=== PATIENT | male | born 2000 ===

== ENCOUNTER 2023-05-23 21:59 | Inpatient (IN) | payer OTHER, SELFPAY ==
--- NOTE | 2023-05-23 | ECG_ITS ---
Test Reason : CHEST PAIN Blood Pressure : / mmHG Vent. Rate : 108 BPM Atrial Rate : 108 BPM P-R Int : 144 ms QRS Dur : 104 ms QT Int : 332 ms P-R-T Axes : 078 123 064 degrees QTc Int : 444 ms Sinus tachycardia Right atrial enlargement Right axis deviation Pulmonary disease pattern Incomplete right bundle branch block Abnormal ECG No previous ECGs available Referred By: Generic ED Physician Electronically Signed By:Milan Cross
--- NOTE | ~2023-05-23 | XR_ITS ---
EXAMINATION: XR CHEST CLINICAL INFORMATION: Chest pain. COMPARISON: None available. TECHNIQUE: 2 views of the chest were obtained. FINDINGS: No significant abnormality is noted involving the heart, lungs, mediastinum, bony thorax or soft tissues. XR/XR chest 2V IMPRESSION: Unremarkable examination.
[2023-05-23 22:22] VITALS: BP 155/94; PULSE 93; RESP 18; TEMP 37.1; O2SAT 97; BMI 19.0
[2023-05-23 22:48] LABS: MANUAL DIFF FLAG NO
[2023-05-23 22:57] LABS: VBG Base Excess -6.9 mmol/L; VBG HCO3 15 mmol/L (22-26); VBG pCO2 24 mmHg; VBG pO2 97 mmHg
[2023-05-23 22:58] LABS: Venous Blood Gas Refer to POC result
[2023-05-23 22:59] LABS: Basophils Absolute Auto 0.1 X10*3/uL (0.0-0.2); Basophils Percent Auto 0.5 % (0-2); Eosinophils Percent Auto 0.1 % (0-4); Hematocrit 40.9 % (42.0-52.0); Hemoglobin 14.5 g/dl (14.0-18.0); Imm Gran Abs Auto 0.04 X10*3/uL (0.00-0.03); Imm Gran Pct Auto 0.3 % (0.0-0.4); Lymphocytes Absolute Auto 3.1 X10*3/uL (1.2-4.9); Lymphocytes Percent Auto 23.5 % (20-40); Mean Corpuscular HGB Conc 35.5 g/dl (31.0-36.0); Mean Corpuscular Volume 87.6 fL (80.0-98.0); Monocytes Absolute Auto 0.9 X10*3/uL (0.1-1.2); Monocytes Percent Auto 6.9 % (2-11); Neutrophils Absolute Auto 9.1 x10*3/uL (2.0-8.3); Neutrophils Percent Auto 68.7 % (45-73); Platelet Count 378 X10*3/uL (160-400); Red Blood Count 4.67 X10*6/uL (4.60-5.80); Red Cell Distribution Width 11.3 % (11.0-16.0); White Blood Count 13.3 X10*3/uL (4.8-10.8)
[2023-05-23 23:21] LABS: Troponin-I High Sensitivity < 2.7 ng/L (<3.5-35.0)
[2023-05-23 23:27] LABS: Alanine Aminotransferase 46 U/L (0-40); Alkaline Phosphatase 95 U/L (39-117); Anion Gap 31 (12-20); Aspartate Amino Transferase 25 U/L (5-37); Bilirubin Total 1.2 mg/dL (0.0-1.0); Blood Urea Nitrogen 17 mg/dL (9-16); Calcium 10.8 mg/dL (8.4-10.2); Carbon Dioxide 15 mmol/L (22-29); Chloride 86 mmol/L (96-108); Estimated Glomerular Filt Rate > 60; Glucose Random 548 mg/dL (60-115); Potassium 3.8 mmol/L (3.3-5.1); Sodium 128 mmol/L (135-145); Total Protein 8.1 g/dL (6.5-8.0)
[2023-05-23 23:37] LABS: Beta-Hydroxybutyrate 7.36 mmol/L (0.02-0.27)
--- NOTE | 2023-05-23 23:40 | PC.NURSE ---
Pt states his blood sugar is dropping rapidly. Endorses that he apparently bolused himself almost 20 units of humalog at home prior to coming to ED. Repeat POC 357. Provider Nikki and primary RN made aware.
[2023-05-23 23:45] LABS: Glucose, Whole Blood 356 mg/dL (60-115)
[2023-05-23 23:45] LABS: Glucose, Whole Blood 578 mg/dL (60-115)
--- OUTSIDE RECORDS SUMMARY | 2023-05-23 23:48 | XMS_ITS | Continuity of Care Document ---
Author Name Unknown Organization [facility] [place] Address [address] [place] [address]- Care Team Providers Care Probation Counselor Name Role Phone Solo SOARES, Priyanka Martino Primary Care Physician [phone] Encounter [facility] Date(s): 10/23/21 - 11/22/21 [facility] [place] [address] [place] [address]- Allergies, Adverse Reactions, Alerts Substance Reaction Severity Status penicillin hives Active Trileptal rash Active Demerol HCl Severe vomitting Active Klonopin hives Active Zithromax hives Active Neurontin hives Active Immunizations Not Given Vaccine Date Status Refusal Reason influenza virus vaccine, inactivated 07/20/17 Not Given Patient Refuses Medications Aspir 81 = 81 mg, By Mouth, Daily, 0 Refills, Maintenance, 10/29/15 16:30:50 Start Date: 10/29/15 Status: Ordered Len Microlet Lancets Len Microlet Lancets, See Instructions, # 200 each, Refills 5, Tot. Refills 5, Maintenance, Test blood sugar max 7x's/day, 06/05/15 15:53:10, Compound Start Date: 06/05/15 Status: Ordered Contour Next EZ Glucometer See Instructions, # 1 each, Refills 1, Tot. Refills 1, Maintenance, For IDDM, use to check blood glucose 5 x's /day Linking meter to Medtronic Insulin Pump, 11/09/18 11:07:19 ТАТЬЯНА BYRNE in progress, Compound Start Date: 11/09/18 Status: Ordered Contour Next EZ Test Strips See Instructions, # 150 each, Refills 11, Tot. Refills 11, Maintenance, For IDDM, use with Contour Next Glucose Meter, check blood sugars 5 x's/day, 11/09/18 11:07:26 EST, PA in progress, Compound Start Date: 11/09/18 Status: Ordered Contour Next EZ Test Strips See Instructions, # 600 units, Refills 4, Tot. Refills 4, Maintenance, use as directed for Type 1 Diabetes Mellitus; tests up to 7 times/d, 06/10/17 15:44:50, Compound Start Date: 06/10/17 Stop Date: 09/03/18 Status: Ordered Glucagon Emergency Kit See Instructions, PRN, # 2 each, Refills 3, Tot. Refills 3, Maintenance, Blood Glucose, For severe hypoglycemia in type 1 diabetes, 06/10/17 15:44:26, Compound Start Date: 06/10/17 Stop Date: 10/08/17 Status: Ordered Humalog 100 u/ml subcutaneous injection See Instructions, for IDDM- use with insulin pump,max dose 110 units/day 10 mL vials, # 30 mL, 0 Refills, Maintenance, 10/18/19 15:45:00 EST, [facility]/pharmacy #[id number], 175.4, cm, 11/02/18 13:49:00 EST, Height, 58.1, kg, 11/02/18 13:49:00 EST, Dry Weight Start Date: 10/18/19 Status: Ordered Humalog 100 u/ml subcutaneous injection See Instructions, Subcutaneous Injection, 12-3am 0.9u/hr. 3-8am 1.4u/hr. 8am-2pm 1.3u/hr. 2pm-10pm 1.7u/hr. 10pm-12pm 1.1 u/hr, # 8 each, 3 Refills, Maintenance, 06/10/17 15:45:05 Start Date: 06/10/17 Stop Date: 10/08/17 Status: Ordered ibuprofen 600 mg oral tablet 600 mg, 1, tablet, By Mouth, 3 times a day, PRN, with food, # 20 tablet, Refills 0, Tot. Refills 0,Maintenance, as needed for pain, 12/20/19 19:20:00 EDT, Route to Pharmacy Electronically, [facility]/pharmacy #[id number], 183, cm, 12/20/19 18:44:00 EDT, Height, 5... Start Date: 12/20/19 Status: Ordered Insulin Syringe, BD Ultra-Fine 0.5 cc 31 G x 8 mm (5/16in) See Instructions, # 200 each, Refills 6, Tot. Refills 6, Maintenance, Use for T1DM. Use 6-7x/daily.Use for home and school., 11/02/18 14:26:19 EST, Compound Start Date: 11/02/18 Status: Ordered Ketostix See Instructions, # 2 vials, Refills 11, Tot. Refills 11, Maintenance, use as directed for Type 1 Diabetes Mellitus.use daily if BS greater than 300 and during illness, 11/02/18 14:28:45 EST, Compound Start Date: 11/02/18 Stop Date: 10/28/19 Status: Ordered Lantus 100 u/ml subcutaneous solution = 20 units, Subcutaneous Injection, Daily at bedtime, IDDM max 50 units daily, # 10 mL, 5 Refills, Maintenance, 11/02/18 14:29:44 EST, Solution Start Date: 11/02/18 Status: Ordered microlet lancets for Contour Next microlet lancets for Contour Next, See Instructions, # 150 each, Refills 11, Tot. Refills 11, Maintenance, For IDDM use with Contour Next Glucose Meter, check blood sugars 5 x's/day, 11/09/18 11:08:41 EST, PA in progress, Compound Start Date: 11/09/18 Status: Ordered MiniMed Paradigm Reservoirs See Instructions, # 40 application, Refills 1, Tot. Refills 1, Maintenance, IDDM 1.8 ml resevoirs. change every 2- 3 days. 90 day suppply, 10/19/18 13:09:22 EST, Compound Start Date: 10/19/18 Status: Ordered Julius infusion sets Julius infusion sets, See Instructions, # 45 each, Refills 0, Tot. Refills 0, Maintenance, IDDM. use with Medtronic pump and change every 2-3 days, 11/02/18 14:55:23 EST, Compound Start Date: 11/02/18 Status: Ordered OneTouch Verio Glucose Meter See Instructions, # 1 each, Refills 1, Tot. Refills 1, Maintenance, IDDM use to check blood sugars,11/04/18 11:30:07 EST, Compound Start Date: 11/04/18 Status: Ordered OneTouch Verio Lancets See Instructions, # 150 each, Refills 11, Tot. Refills 11, Maintenance, IDDM use to check blood sugars 5 times perday, 11/04/18 11:26:29 EST, Compound Start Date: 11/04/18 Status: Ordered OneTouch Verio Lancets See Instructions, # 150 each, Refills 5, Tot. Refills 5, Maintenance, use 5 times daily, 11/04/18 11:26:32 EST, Compound Start Date: 11/04/18 Status: Ordered OneTouch Verio Test Strips See Instructions, # 150 each, Refills 11, Tot. Refills 11, Maintenance, IDDM use to check blood sugars 4-5 times daily, 11/03/18 15:37:28 EST, Compound Start Date: 11/03/18 Status: Ordered Problem List Condition Effective Dates Status Health Status Inform ant ADHD(Confirmed) Active Diabetes mellitus type 1(Confirmed) Active Headache(Confirmed) Active [place] disease(Confirmed) Active Seizure disorder(Confirmed) Active Social History Social History Type Response Smoking Status Never (less than 100 in lifetime) entered on: 12/20/19 Sex
--- OUTSIDE RECORDS SUMMARY | 2023-05-23 23:48 | XMS_ITS | Continuity of Care Document ---
Author Name Unknown Organization [facility] [place] Address [address] [place] [address]- Care Team Providers Care Track Moving Machine Operator Name Role Phone Solo SOARES, Priyanka Martino Primary Care Physician Encounter [facility] Date(s): 11/07/21 - 12/07/21 [facility] [place] [address] [place] [address]- Allergies, Adverse Reactions, Alerts Substance Reaction Severity Status penicillin hives Active Klonopin hives Active Zithromax hives Active Neurontin hives Active Demerol HCl Severe vomitting Active Trileptal rash Active Immunizations Not Given Vaccine Date Status [...] mL, 0 Refills, Maintenance, 10/18/19 15:45:00 EST, [facility]/pharmacy #1234, 175.4, cm, 11/02/18 13:49:00 EST, [...] 12/20/19 19:20:00 EDT, Route to Pharmacy Electronically, [facility]/pharmacy #[id number], 183, cm, 12/20/19 18:44:00 EDT, [...]
--- OUTSIDE RECORDS SUMMARY | 2023-05-23 23:49 | XMS_ITS | Continuity of Care Document ---
Author Name Unknown Organization [facility] Address [address] [place] [id number]- Care Team Providers Care Corporate Development Associate Name Role Phone Solo SOARES, Priyanka Martino Primary Care Physician Encounter [facility] Date(s): 10/29/21 - 12/12/[address] [address]- Attending Physician: Robyn Martin MD Admitting Physician: Robyn Martin MD Referring Physician: Robyn Martin MD Allergies, Adverse Reactions, Alerts Substance Reaction Severity [...] check blood sugars 5 x's/day, 11/09/18 11:07:26 ESTТАТЬЯНА in progress, Compound Start Date: 11/09/18 Status: [...] mL, 0 Refills, Maintenance, 10/18/19 15:45:00 EST, [facility]/pharmacy #1234, 175.4, cm, 11/02/18 13:49:00 EST, Height, [...] 12/20/19 19:20:00 EDT, Route to Pharmacy Electronically, [facility]/pharmacy #[id number], 183, cm, 12/20/19 18:44:00 EDT, Height, [...] EST, Compound Start Date: 11/02/18 Status: Ordered OneInnovitiuch Verio Glucose Meter See Instructions, # 1 [...]
--- OUTSIDE RECORDS SUMMARY | 2023-05-23 23:49 | XMS_ITS | Summary of Care ---
/Man Author Name Unknown Organization [facility] Address [address] [place] [address]- Care Team Providers Care Erp Engineer Name Role Phone Physician, Nopcp Primary Care Physician Unavaila ble Encounter [facility] [id number] Date(s): 10/15/21 - 10/15/21 [place] [id number]- [facility] Encounter Diagnosis Abdominal pain(Discharge Diagnosis) - 10/15/21 Discharge Disposition: Home Attending Physician: Estelita SOARES, Bright Mckeon Allergies, Adverse Reactions, Alerts No Known Allergies Social History Social History Type Response
--- OUTSIDE RECORDS SUMMARY | 2023-05-23 23:49 | XMS_ITS | Continuity of Care Document ---
Author Name Unknown Organization [facility] [place] Address [address] [place] [address]- Care Team Providers Care Incinerator Plant General Supervisor Name Role Phone Solo SOARES, Priyanka Martino Primary Care Physician [phone] Encounter [facility] Date(s): 10/29/21 - 11/28/21 [facility] [place] [address] [place] [address]- Allergies, Adverse Reactions, Alerts Substance Reaction Severity [...] mL, 0 Refills, Maintenance, 10/18/19 15:45:00 EST, [facility]/pharmacy #1234, 175.4, cm, 11/02/18 13:49:00 EST, Height, [...] 12/20/19 19:20:00 EDT, Route to Pharmacy Electronically, [facility]/pharmacy #[id number], 183, cm, 12/20/19 18:44:00 EDT, Height, [...]
--- OUTSIDE RECORDS SUMMARY | 2023-05-23 23:49 | XMS_ITS | Summary of Care ---
/Man Author Name Unknown Organization [facility] Address [address] [place] [address]- Care Team Providers Care Secret Code Expert Name Role Phone Valeria SOARES, Eleazar Pride Primary Care Physician [phone] Encounter [facility] [id number] Date(s): 02/06/23 - 02/06/23 [place] [address]- [facility] Discharge Disposition: Home Attending Physician: Sara Morocho NP Allergies, Adverse Reactions, Alerts No Known Allergies Social History Social History Type Response
--- OUTSIDE RECORDS SUMMARY | 2023-05-23 23:49 | XMS_ITS | Summary of Care ---
/Man Author Name Unknown Organization [facility] Address [address] [place] [address]- Care Team Providers Care National Park Ranger Name Role Phone Valeria SOARES, Eleazar Pride Primary Care Physician [phone] Encounter [facility] [id number] Date(s): 01/07/23 - 01/07/23 [place] [address]- [facility] Discharge Disposition: Home Attending Physician: Rashawn JONES, Sara Albrecht Referring Physician: Eleazar Shaw MD Allergies, Adverse Reactions, Alerts No Known Allergies Social History Social History Type Response
--- OUTSIDE RECORDS SUMMARY | 2023-05-23 23:49 | XMS_ITS | Continuity of Care Document ---
Author Name Unknown Organization [facility] [place] Address [address] [place] [address]- Care Team Providers Care Regional Economist Name Role Phone Solo SOARES, Priyanka Martino Primary Care Physician Encounter [facility] Date(s): 10/25/21 - 11/24/21 [facility] [place] [address] [place] [address]- Attending Physician: Elijah Vaughn Admitting Physician: AdmElijah jara Referring Physician: Admtr ArCandis Allergies, Adverse Reactions, Alerts Substance Reaction Severity [...] mL, 0 Refills, Maintenance, 10/18/19 15:45:00 EST, [facility]/pharmacy #1234, 175.4, cm, 11/02/18 13:49:00 EST, [...] 12/20/19 19:20:00 EDT, Route to Pharmacy Electronically, [facility]/pharmacy #1234, 183, cm, 12/20/19 18:44:00 EDT, [...] EST, Compound Start Date: 11/02/18 Status: Ordered OneFUNGO STUDIOSuch Verio Glucose Meter See Instructions, # 1 [...]
--- OUTSIDE RECORDS SUMMARY | 2023-05-23 23:49 | XMS_ITS | Summary of Care ---
/Man Author Name Unknown Organization [facility] Address [address] [place] [address]- Care Team Providers Care Millstone Cleaner Name Role Phone Valeria SOARES, Eleazar Pride Primary Care Physician Encounter [facility] [id number] Date(s): 02/06/23 - 02/06/23 [place] [address]- [facility] Discharge Disposition: Home Attending Physician: Sara Morocho NP Allergies, Adverse Reactions, Alerts No Known Allergies Social History Social History Type Response
--- OUTSIDE RECORDS SUMMARY | 2023-05-23 23:49 | XMS_ITS | Summary of Care ---
/Man Author Name Unknown Organization [facility] Address [address] [place] [address]- Care Team Providers Care Gas Controller Name Role Phone Physician, Nopcp Primary Care Physician Unavaila ble Encounter [facility] [id number] Date(s): 04/15/22 - 04/15/22 [place] [id number] Discharge Disposition: Home Attending Physician: Valeria SOARES, Eleazar Pride Allergies, Adverse Reactions, Alerts No Known Allergies Social History Social History Type Response
--- OUTSIDE RECORDS SUMMARY | 2023-05-23 23:49 | XMS_ITS | Summary of Care ---
/Man Author Name Unknown Organization [facility] Address [address] [place] [address]- Care Team Providers Care Missile Inspector Name Role Phone Valeria SOARES, Eleazar Pride Primary Care Physician Encounter [facility] [id number] Date(s): 08/19/22 - 08/19/22 [place] [address]- [facility] Discharge Disposition: Home Attending Physician: Eleazar Shaw MD Allergies, Adverse Reactions, Alerts No Known Allergies Social History Social History Type Response
--- OUTSIDE RECORDS SUMMARY | 2023-05-23 23:49 | XMS_ITS | Continuity of Care Document ---
Author Name Unknown Organization [facility] [place] Address [address] [place] [address]- Care Team Providers Care Report Checker Name Role Phone Solo SOARES, Priyanka Martino Primary Care Physician [phone] Encounter [facility] Date(s): 11/06/21 - 12/06/21 [facility] [place] [address] [place] [address]- Allergies, Adverse Reactions, Alerts Substance Reaction Severity [...] mL, 0 Refills, Maintenance, 10/18/19 15:45:00 EST, [facility]/pharmacy #1234, 175.4, cm, 11/02/18 13:49:00 EST, Height, [...] 12/20/19 19:20:00 EDT, Route to Pharmacy Electronically, [facility]/pharmacy #1234, 183, cm, 12/20/19 18:44:00 EDT, Height, [...]
[2023-05-24] VITALS (11 sets, daily range): BP systolic 121–139; BP diastolic 58–84; PULSE 72–110; RESP 11–20; TEMP 36.6–36.7; O2SAT 96–100; BMI 18.2
[2023-05-24] MEDS: 0.9 % Sodium Chloride 1,000 ML 999 ML IV (00:10)
--- NOTE | 2023-05-24 00:10 | ED_ITS ---
HPI - General Adult General Chief complaint: General Medical Stated complaint: chest pain Time Seen by Provider: 05/23/23 23:44 Source: patient and family (Mother) Mode of arrival: ambulatory Limitations: no limitations History of Present Illness HPI narrative: 23-year-old male history of type 1 DM controlled insulin using insulin pump, patient just realized that the pump was not working for the past 2 days and his blood sugar was above 500, patient now is in DKA with anion gap of 31 and bicarb of 15 blood sugar above 500. Patient declined any coughing, no UTI symptoms, no skin infection. Patient prior to arrival to the hospital bolused himself was 20 units of insulin Humalog which is making his blood sugar dropping. Patient has been vomiting with no abdominal pain and could not keep p.o. intake for the last 2 days. Related Data Allergies Allergy/AdvReac Type Severity Reaction Status Date / Time azithromycin [Zithromax] Allergy Unknown Rash Verified 05/23/23 22:21 clonazepam [Klonopin] Allergy Unknown Rash Verified 05/23/23 22:21 gabapentin [Neurontin] Allergy Unknown Shakiness Verified 05/23/23 22:21 penicillin V Allergy Unknown Rash Verified 05/23/23 22:21 oxcarbazepine [Trileptal] AdvReac Unknown Agitated Verified 05/23/23 22:21 Review of Systems Review of Systems: All other systems are reviewed and are negative Constitutional: Reports as per HPI and Reports no additional constitutional complaints Eyes: Reports as per HPI and Reports no additional eye complaints Reports system reviewed and no additional complaints, except as documented Cardiovascular: Reports as per HPI and Reports no additional cardiovascular complaints Respiratory: Reports as per HPI and Reports no additional respiratory complaints Gastrointestinal: Reports as per HPI and Reports no additional gastrointestinal complaints Genitourinary: Reports no additional female genitourinary complaints Musculoskeletal: Reports no additional musculoskeletal complaints Skin/Breast: Reports system reviewed and no additional complaints, except as docu Psychiatric: Reports no additional psychiatric complaints Endocrine: Reports no additional endocrine complaints Hematologic/Lymphatic: Reports no additional hematologic/lymphatic complaints Allergic/Immunologic: Reports no additional allergic/immunologic complaints Reports system reviewed and no additional complaints, except as documented and Reports Abnormal speech present PMFSH Social History Social History Advance Directives: No Advance Directives Information Provided: No Physical Exam ED Vital Signs: Vital Signs - 24 hr 05/23/23 22:22 Temperature 98.8 F Pulse Rate 93 Respiratory Rate 18 Blood Pressure 155/94 H Pulse Oximetry 97 Oxygen Delivery Method Room Air BMI result Body Mass Index 19.0 Vital signs have been reviewed as appeared to be correct. Blood pressure normal. Heart rate normal. Respiration rate normal. Temperature normal. Oxygen saturation normal. Appearance: Alert. Oriented X3. No acute distress. Head: Normal external exam. Normocephalic. Atraumatic. No Newton signs noted. No raccoon eyes noted Eyes: PERRLA. EOMI. Conjunctiva and sclera normal. Eyelids normal. ENT: TM's Normal. Pharynx normal. Uvula midline. Moist mucous membranes. No trismus noted. No drooling noted. No muffled voice noted. Neck: Normal inspection. Neck supple. FROM. No adenopathy. Thyroid Normal. No meningeal signs. No neck mass noted. CVS: Normal heart rate and rhythm. Heart sound normal. No murmurs noted. Pulses normal throughout. Respiratory: No respiratory distress. Painless inspiration. Breath sounds normal. No wheezes/rales/rhonchi noted. Chest nontender. No accessory muscle usage noted or decreased air movement noted. Abdomen: Soft and nontender. Bowel sounds normal in all 4 quadrants. No distention noted. No organomegaly noted. No visible injury noted. Back: No CVA tenderness. Full range of motion noted. Skin: Skin warm and dry. Normal skin color. Normal skin turgor. No rashes/lesions/lacerations noted. Extremities: No lower extremity edema. Extremities exhibit normal range of motion. Extremities nontender. Neuro: Oriented X 3. Cranial nerve exam: II-XII are grossly intact No motor deficit. No sensory deficit. Reflexes normal. Course Course Course Narrative: 22-year-old male DM type 1, in DKA due to malfunctioning insulin pump. No sign of infection to precipitate DKA. Continue with IV fluid, insulin IV, ICU admission, stop the insulin pump past Medical Decision Making Differential Diagnosis Differential Diagnoses: The differential diagnosis associated with the presentation includes (Hyperglycemia, DKA, electrolyte abnormality, underlying infection, dehydration,) Admission/Observation Consideration of admission/observation: Escalation of care including admission/observation considered Consult Healthcare Provider Management of the patient was discussed with: [employer] (Dr. Gimenez.) Lab Data MDM Lab Attestation statement: I reviewed the patient's lab results. 05/23/23 22:37 05/23/23 22:37 Labs: Lab Results 05/23/23 05/23/23 05/23/23 Range/Units 22:30 22:36 22:37 WBC 13.3 H (4.8-10.8) X10*3/uL RBC 4.67 (4.60-5.80) X10*6/uL Hgb 14.5 (14.0-18.0) g/dl Hct 40.9 L (42.0-52.0) % MCV 87.6 (80.0-98.0) fL MCH 31.0 (27.0-33.0) pg MCHC 35.5 (31.0-36.0) g/dl RDW 11.3 (11.0-16.0) % Plt Count 378 (160-400) X10*3/uL MPV 10.0 (9.4-12.4) fL Immature Gran % (Auto) 0.3 (0.0-0.4) % Neut % (Auto) 68.7 (45-73) % Lymph % (Auto) 23.5 (20-40) % Wilkinson % (Auto) 6.9 (2-11) % Eos % (Auto) 0.1 (0-4) % Baso % (Auto) 0.5 (0-2) % Lymph # (Auto) 3.1 (1.2-4.9) X10*3/uL Wilkinson # (Auto) 0.9 (0.1-1.2) X10*3/uL Eos # (Auto) 0.0 (0.0-0.4) X10*3/uL Baso # (Auto) 0.1 (0.0-0.2) X10*3/uL Abs Immat Gran (auto) 0.04 H (0.00-0.03) X10*3/uL Absolute Neuts (auto) 9.1 H (2.0-8.3) x10*3/uL Absolute Nucleated RBC 0.000 (0.0-0.012) X10*3/uL Nucleated RBC % (auto) 0.0 (0.0-0.2) /100WBC VBG pH (7.32-7.43) VBG pCO2 mmHg VBG pO2 mmHg VBG HCO3 (22-26) mmol/L VBG O2 Saturation % VBG Base Excess mmol/L Sodium (135-145) mmol/L Potassium (3.3-5.1) mmol/L Chloride (96-108) mmol/L Carbon Dioxide (22-29) mmol/L Anion Gap (12-20) BUN (9-16) mg/dL Creatinine (0.5-1.4) mg/dL Estim Creat Clear Calc Estimated GFR POC Glucose 578 H* (60-115) mg/dL Random Glucose (60-115) mg/dL Calcium (8.4-10.2) mg/dL Total Bilirubin (0.0-1.0) mg/dL AST (5-37) U/L ALT (0-40) U/L Alkaline Phosphatase (39-117) U/L Troponin I High Sens (<3.5-35.0) ng/L Total Protein (6.5-8.0) g/dL Albumin (3.5-5.0) g/dL Beta-Hydroxybutyrate 7.36 H (0.02-0.27) mmol/L 05/23/23 05/23/23 05/23/23 Range/Units 22:37 22:37 22:45 WBC (4.8-10.8) X10*3/uL RBC (4.60-5.80) X10*6/uL Hgb (14.0-18.0) g/dl Hct (42.0-52.0) % MCV (80.0-98.0) fL MCH (27.0-33.0) pg MCHC (31.0-36.0) g/dl RDW (11.0-16.0) % Plt Count (160-400) X10*3/uL MPV (9.4-12.4) fL Immature Gran % (Auto) (0.0-0.4) % Neut % (Auto) (45-73) % Lymph % (Auto) (20-40) % Wilkinson % (Auto) (2-11) % Eos % (Auto) (0-4) % Baso % (Auto) (0-2) % Lymph # (Auto) (1.2-4.9) X10*3/uL Wilkinson # (Auto) (0.1-1.2) X10*3/uL Eos # (Auto) (0.0-0.4) X10*3/uL Baso # (Auto) (0.0-0.2) X10*3/uL Abs Immat Gran (auto) (0.00-0.03) X10*3/uL Absolute Neuts (auto) (2.0-8.3) x10*3/uL Absolute Nucleated RBC (0.0-0.012) X10*3/uL Nucleated RBC % (auto) (0.0-0.2) /100WBC VBG pH 7.40 (7.32-7.43) VBG pCO2 24 mmHg VBG pO2 97 mmHg VBG HCO3 15 L (22-26) mmol/L VBG O2 Saturation 99.0 % VBG Base Excess -6.9 mmol/L Sodium 128 L (135-145) mmol/L Potassium 3.8 (3.3-5.1) mmol/L Chloride 86 L (96-108) mmol/L Carbon Dioxide 15 L (22-29) mmol/L Anion Gap 31 H (12-20) BUN 17 H (9-16) mg/dL Creatinine 1.30 (0.5-1.4) mg/dL Estim Creat Clear Calc 80.0 Estimated GFR > 60 POC Glucose (60-115) mg/dL Random Glucose 548 H* (60-115) mg/dL Calcium 10.8 H (8.4-10.2) mg/dL Total Bilirubin 1.2 H (0.0-1.0) mg/dL AST 25 (5-37) U/L ALT 46 H (0-40) U/L Alkaline Phosphatase 95 (39-117) U/L Troponin I High Sens < 2.7 (<3.5-35.0) ng/L Total Protein 8.1 H (6.5-8.0) g/dL Albumin 5.0 (3.5-5.0) g/dL Beta-Hydroxybutyrate (0.02-0.27) mmol/L 05/23/23 Range/Units 23:37 WBC (4.8-10.8) X10*3/uL RBC (4.60-5.80) X10*6/uL Hgb (14.0-18.0) g/dl Hct (42.0-52.0) % MCV (80.0-98.0) fL MCH (27.0-33.0) pg MCHC (31.0-36.0) g/dl RDW (11.0-16.0) % Plt Count (160-400) X10*3/uL MPV (9.4-12.4) fL Immature Gran % (Auto) (0.0-0.4) % Neut % (Auto) (45-73) % Lymph % (Auto) (20-40) % Wilkinson % (Auto) (2-11) % Eos % (Auto) (0-4) % Baso % (Auto) (0-2) % Lymph # (Auto) (1.2-4.9) X10*3/uL Wilkinson # (Auto) (0.1-1.2) X10*3/uL Eos # (Auto) (0.0-0.4) X10*3/uL Baso # (Auto) (0.0-0.2) X10*3/uL Abs Immat Gran (auto) (0.00-0.03) X10*3/uL Absolute Neuts (auto) (2.0-8.3) x10*3/uL Absolute Nucleated RBC (0.0-0.012) X10*3/uL Nucleated RBC % (auto) (0.0-0.2) /100WBC VBG pH (7.32-7.43) VBG pCO2 mmHg VBG pO2 mmHg VBG HCO3 (22-26) mmol/L VBG O2 Saturation % VBG Base Excess mmol/L Sodium (135-145) mmol/L Potassium (3.3-5.1) mmol/L Chloride (96-108) mmol/L Carbon Dioxide (22-29) mmol/L Anion Gap (12-20) BUN (9-16) mg/dL Creatinine (0.5-1.4) mg/dL Estim Creat Clear Calc Estimated GFR POC Glucose 356 H* (60-115) mg/dL Random Glucose (60-115) mg/dL Calcium (8.4-10.2) mg/dL Total Bilirubin (0.0-1.0) mg/dL AST (5-37) U/L ALT (0-40) U/L Alkaline Phosphatase (39-117) U/L Troponin I High Sens (<3.5-35.0) ng/L Total Protein (6.5-8.0) g/dL Albumin (3.5-5.0) g/dL Beta-Hydroxybutyrate (0.02-0.27) mmol/L Independent Interpretation I performed an independent interpretation of an: Plain X-Ray (Chest: No acute intrathoracic pathology.) Radiology Impression Discussion of test interpretation with radiology: I have reviewed the radiologist's reading. Chronic Conditions Patient?s care impacted by: Diabetes Critical Care Time Critical Care Time Critical Care Time: Yes Total Critical Care Time: 60 Attestation: I spent 60 minutes providing critical care service to the patient, this including time spent at the bedside to evaluate the patient, reassess the patient, monitoring vital signs, review labs, and radiographic studies, counseling the patient/family, discussing the case with consultants, disposition the patient. Discharge Plan Discharge Clinical Impression: DKA (diabetic ketoacidosis) Patient Disposition: Admitted As Inpatient
[2023-05-24] MEDS: Dextrose 50 % 25 GM/50 ML SYRINGE IVPUSH ×2 (00:43→04:20)
[2023-05-24] MEDS: Insulin Regular/NS 100 UNIT/100 ML PLAST..BAG 6 UNIT IVCONT (00:44)
[2023-05-24 00:51] LABS: Glucose, Whole Blood 271 mg/dL (60-115)
[2023-05-24 01:40] LABS: Glucose, Whole Blood 214 mg/dL (60-115)
[2023-05-24 01:47] LABS: Glucose, Whole Blood 221 mg/dL (60-115)
--- NOTE | 2023-05-24 01:55 | PC.NURSE ---
Report to Brian FRANK in ICU.
[2023-05-24 02:16] LABS: Appearance Urine Clear; Color Urine Yellow; Glucose Urine UA >=1000 mg/dL (Negative); Leukocyte Esterase Urine Negative (Negative); Nitrite Urine Negative (Negative); PH 5.5 (5.0-9.0); Specific Gravity - Urine 1.025 (1.005-1.025); UMIC TRIGGER UACC YES; Urine Blood Negative (Negative); Urine Ketones >=160 mg/dL (Negative); Urine Protein Negative (Neg-Trace)
[2023-05-24] MEDS: KCl 20 mEq in 5% Dex/0.9% Sod 20 MEQ/1,000 ML IV.SOLN 100 MEQ IVCONT (02:18)
--- NOTE | 2023-05-24 02:20 | PM.CCHP ---
History of Present Illness Date of Service: 05/24/23 Attending physician on admission: Momo Gimenez Chief Complaint: DKA Mr. Matthews is a 23-year-old male with history of type 1 DM controlled with insulin pump? the presents to the ER with complaint of vomiting with no abdominal pain and could not keep p.o. intake for the last 2 days. He realized that his pump was not working for the past 2 days and his blood sugar was above 500. Patient denies any coughing, no UTI symptoms, no skin infection. In the ER his blood glucose was 548, sodium 128, potassium 3.8, chloride 86, CO2 15, anion gap 31,? BUN 17, creatinine 1.30.? Venous blood gas showed pH of 7.40, pCO2 24, HC03 of 15.?? He received 1 L normal saline and was started on an insulin drip.?? Review of Systems Review of Systems: Yes all other systems are reviewed and are negative PMFSH Past Medical History Functional capacity: independent ambulation Social History Social History Advance Directives: No Advance Directives Information Provided: No Meds Allergies Allergy/AdvReac Type Severity Reaction Status Date / Time azithromycin [Zithromax] Allergy Unknown Rash Verified 05/23/23 22:21 clonazepam [Klonopin] Allergy Unknown Rash Verified 05/23/23 22:21 gabapentin [Neurontin] Allergy Unknown Shakiness Verified 05/23/23 22:21 penicillin V Allergy Unknown Rash Verified 05/23/23 22:21 oxcarbazepine [Trileptal] AdvReac Unknown Agitated Verified 05/23/23 22:21 Active Medications: Current Medications Dextrose (Dextrose 50 % 25 Gm/50 Ml Syringe) 25 gm IVPUSH Q30M PRN PRN Reason: BG < 70 Dextrose (Dextrose 50 % 25 Gm/50 Ml Syringe) 25 gm IVPUSH Q30M PRN PRN Reason: BG < 70 Last Admin: 05/24/23 00:43 Dose: 25 gm Insulin Human Regular (Myxredlin) 100 unit in 100 mls @ 6 mls/hr IVCONT .[id number] [facility]; Protocol Last Titration: 05/24/23 01:50 Dose: 9 unit/hr, 9 mls/hr Potassium Chloride/Dextrose/Sod Cl (Kcl 20 Meq In 5% Dex/0.9% Sod) 20 meq in 1,000 mls @ 100 mls/hr IVCONT .Q10H GLENDY Last Admin: 05/24/23 02:18 Dose: 100 mls/hr Physical Exam Vital Signs: Vital Signs: Last Vital Signs Temp 98.8 F 05/23/23 22:22 Pulse 92 05/24/23 01:59 Resp 20 05/24/23 01:59 BP 127/58 L 05/24/23 01:59 Pulse Ox 98 05/24/23 01:59 O2 Del Method Room Air 05/24/23 01:59 BMI result Body Mass Index 19.0 Const: General: cooperative, no acute distress and alert Nutritional Appearance: thin and underweight Orientation/consciousness: patient oriented x3 (answering appropriately.) Limitations: no limitations HEENT: Head: Yes normocephalic and Yes atraumatic General nose exam: Normal external nose present (Nares patent, septum midline, sinuses nontender bilaterally.) Mouth: Normal oral and palatal mucosa present (No thrush, tongue in midline, mucosa moist.) Throat: Yes other (No erythema, no exudate.) Neck: Neck: Yes supple (no thyromegaly, trachea midline.) Resp: Auscultation: clear to auscultation bilaterally (normal work of breathing, no accessory muscle use) Cardio: Jugular venous distension: no JVD Rate: regular rate Rhythm: regular rhythm Heart sounds: no gallops, no murmurs and no rubs Peripheral pulses: Peripheral pulses 2+ throughout GI: Palpation (GI): Soft to palpation (nondistended.) and nontender Neuro: General: patient oriented x3 (answering appropriately.) Extrem: General: Yes full ROM, Yes capillary refill normal and Yes no clubbing, cyanosis or edema Psych: Affect: normal affect Attitude: cooperative Results Labs 05/23/23 22:37 05/23/23 22:37 Labs: Laboratory Results - last 24 hr 05/23/23 05/23/23 05/23/23 22:30 22:36 22:37 MCV 87.6 MCH 31.0 MCHC 35.5 RDW 11.3 Plt Count 378 MPV 10.0 Immature Gran % (Auto) 0.3 Neut % (Auto) 68.7 Lymph % (Auto) 23.5 [place] % (Auto) 6.9 Eos % (Auto) 0.1 Baso % (Auto) 0.5 Lymph # (Auto) 3.1 [place] # (Auto) 0.9 Eos # (Auto) 0.0 Baso # (Auto) 0.1 Abs Immat Gran (auto) 0.04 H Absolute Neuts (auto) 9.1 H Absolute Nucleated RBC 0.000 Nucleated RBC % (auto) 0.0 VBG pH VBG pCO2 VBG pO2 VBG HCO3 VBG O2 Saturation VBG Base Excess Anion Gap Estim Creat Clear Calc Estimated GFR POC Glucose 578 H* Random Glucose Calcium Total Bilirubin AST ALT Alkaline Phosphatase Total Protein Albumin Beta-Hydroxybutyrate 7.36 H 05/23/23 05/23/23 05/23/23 22:37 22:45 23:37 MCV MCH MCHC RDW Plt Count MPV Immature Gran % (Auto) Neut % (Auto) Lymph % (Auto) [place] % (Auto) Eos % (Auto) Baso % (Auto) Lymph # (Auto) [place] # (Auto) Eos # (Auto) Baso # (Auto) Abs Immat Gran (auto) Absolute Neuts (auto) Absolute Nucleated RBC Nucleated RBC % (auto) VBG pH 7.40 VBG pCO2 24 VBG pO2 97 VBG HCO3 15 L VBG O2 Saturation 99.0 VBG Base Excess -6.9 Anion Gap 31 H Estim Creat Clear Calc 80.0 Estimated GFR > 60 POC Glucose 356 H* Random Glucose 548 H* Calcium 10.8 H Total Bilirubin 1.2 H AST 25 ALT 46 H Alkaline Phosphatase 95 Total Protein 8.1 H Albumin 5.0 Beta-Hydroxybutyrate 05/24/23 05/24/23 05/24/23 00:07 00:42 01:35 MCV MCH MCHC RDW Plt Count MPV Immature Gran % (Auto) Neut % (Auto) Lymph % (Auto) [place] % (Auto) Eos % (Auto) Baso % (Auto) Lymph # (Auto) [place] # (Auto) Eos # (Auto) Baso # (Auto) Abs Immat Gran (auto) Absolute Neuts (auto) Absolute Nucleated RBC Nucleated RBC % (auto) VBG pH VBG pCO2 VBG pO2 VBG HCO3 VBG O2 Saturation VBG Base Excess Anion Gap Estim Creat Clear Calc Estimated GFR POC Glucose 271 H 221 H 214 H Random Glucose Calcium Total Bilirubin AST ALT Alkaline Phosphatase Total Protein Albumin Beta-Hydroxybutyrate Imaging Radiologist's Impressions: Impressions Chest X-Ray 05/23/23 22:42 IMPRESSION: Unremarkable examination. Assessment and Plan (1) DKA (diabetic ketoacidosis): Status: Acute Plan ASSESSMEMT:? 23-year-old male with type 1 diabetes mellitus now presents with diabetic ketoacidosis requiring admission into the ICU for management.?? PLAN: Neuro:? no acute issues?? Cardiac:? no acute issues Pulmonary:? no acute issues?? Renal: ? No acute issues. Continue IV fluid.? Continue to check renal induces and urine output.? Closely monitor electrolytes. GI:? Vomiting from? gastroparesis. Zofran p.r.n.? Endo:? Type 1 diabetes /diabetic ketoacidosis-? continue IVF. Follow DKA protocol? ID: ? no acute issues? Heme/Onc:? No acute issues. Psych:? No acute issues. Miscellaneous:? No acute issues. Prophylaxis:? Early ambulation/ bilateral pneumatic pumps Diet: ? NPO? with sips of water ice chips Critical care time: does not qualify for critical care? Time Spent With Patient Time: Total time managing care of this patient today ____ minutes.
[2023-05-24 02:21] LABS: Bacteria Urine None Seen (None Seen); Hyaline Casts Urine 0-2 /LPF (0-2); RBC Urine 0-2 /HPF (0-2); Squamous Epithelial Cell Urine 0-2 /HPF (0-2); WBC Urine 0-5 /HPF (0-5)
[2023-05-24 02:28] LABS: Glucose, Whole Blood 185 mg/dL (60-115)
[2023-05-24 02:48] LABS: VBG Base Excess 5.8 mmol/L; VBG HCO3 28 mmol/L (22-26); VBG pCO2 33 mmHg; VBG pH 7.53 (7.32-7.43); VBG pO2 65 mmHg
[2023-05-24 02:56] LABS: Venous Blood Gas Refer to POC result
[2023-05-24 03:08] LABS: Anion Gap 14 (12-20); Blood Urea Nitrogen 12 mg/dL (9-16); Carbon Dioxide 27 mmol/L (22-29); Chloride 97 mmol/L (96-108); Creatinine Clr Calc Pharmacy 110.8; Estimated Glomerular Filt Rate > 60; Glucose Random 151 mg/dL (60-115); Potassium 3.4 mmol/L (3.3-5.1); Sodium 135 mmol/L (135-145)
[2023-05-24 03:12] LABS: Glucose, Whole Blood 117 mg/dL (60-115)
[2023-05-24 04:42] LABS: Glucose, Whole Blood 66 mg/dL (60-115)
[2023-05-24 04:42] LABS: Glucose, Whole Blood 194 mg/dL (60-115)
[2023-05-24 05:13] LABS: Glucose, Whole Blood 124 mg/dL (60-115)
[2023-05-24 06:10] LABS: Glucose, Whole Blood 80 mg/dL (60-115)
[2023-05-24 07:14] LABS: Glucose, Whole Blood 74 mg/dL (60-115)
[2023-05-24 07:47] LABS: Glucose, Whole Blood 95 mg/dL (60-115)
--- NOTE | 2023-05-24 08:36 | PHA.MEDREC ---
Addendum entered by Dash Minor 05/24/23 08:37: PT USES [facility] INSULIN PUMP. Original Note: Pharmacy Consult ? Medication Reconciliation Pharmacy has completed the medication reconciliation. Spoke to patient to confirm meds.
[2023-05-24 08:43] LABS: Glucose, Whole Blood 278 mg/dL (60-115)
[2023-05-24 08:50] LABS: Anion Gap 19 (12-20); Blood Urea Nitrogen 10 mg/dL (9-16); Calcium 9.5 mg/dL (8.4-10.2); Carbon Dioxide 25 mmol/L (22-29); Chloride 99 mmol/L (96-108); Estimated Glomerular Filt Rate > 60; Glucose Random 85 mg/dL (60-115); Potassium 3.6 mmol/L (3.3-5.1); Sodium 139 mmol/L (135-145)
--- NOTE | 2023-05-24 08:50 | MHC.CM.PN ---
CM MET WITH PT AND MOTHER AT BEDSIDE IN ICU. PT LIVES IN [place] BUT IS RE-LOCATING TO BE WITH MOTHER IN [place]. INDEPENDENT. THRIVE ASSESSMENT - . + HCP DONE AN PLACED IN CHART. +COVID VAX X2 WITH [facility] NO PCP, [facility] BROCHURE PROVIDED. [facility] MANAGES INSULIN PUMP/SUPPLIES. DP: HOME, NO SERVICES ANTICIPATED. PT WILL DRIVE OWN CAR. CM WILL CONTINUE TO FOLLOW FOR ANY CHANGE IN DC PLAN/NEEDS.
[2023-05-24] MEDS: Insulin Lispro 100 UNIT/ML 3 ML VIAL 6 UNIT SUBCUT (08:55)
[2023-05-24 09:22] LABS: Venous Blood Gas Refer to POC result
[2023-05-24 09:22] LABS: VBG Base Excess 2.5 mmol/L; VBG HCO3 26 mmol/L (22-26); VBG pCO2 37 mmHg; VBG pH 7.45 (7.32-7.43); VBG pO2 93 mmHg
[2023-05-24 09:34] LABS: Anion Gap 18 (12-20); Blood Urea Nitrogen 9 mg/dL (9-16); Calcium 9.2 mg/dL (8.4-10.2); Carbon Dioxide 23 mmol/L (22-29); Chloride 96 mmol/L (96-108); Creatinine Clr Calc Pharmacy 123.2; Estimated Glomerular Filt Rate > 60; Glucose Random 286 mg/dL (60-115); Potassium 3.9 mmol/L (3.3-5.1); Sodium 133 mmol/L (135-145)
[2023-05-24 11:31] LABS: Glucose, Whole Blood 98 mg/dL (60-115)
--- NOTE | 2023-05-24 13:34 | P.DS_ITS ---
DS: Providers Provider Date of Service: 05/24/23 Date of admission: 05/24/23 00:11 Primary care physician: Unknown Physician DS: Diagnosis Discharge Diagnosis (1) DKA (diabetic ketoacidosis): Status: Acute (2) Insulin pump mechanical complication: Status: Acute DS: Summary Hospital Course Hospital Course: Admission note HPI from ICU provider Mr. Matthews is a 23-year-old male with history of type 1 DM controlled with insulin pump? the presents to the ER with complaint of vomiting with no abdominal pain and could not keep p.o. intake for the last 2 days. He realized that his pump was not working for the past 2 days and his blood sugar was above 500. Patient denies any coughing, no UTI symptoms, no skin infection. In the ER his blood glucose was 548, sodium 128, potassium 3.8, chloride 86, CO2 15, anion gap 31,? BUN 17, creatinine 1.30.? Venous blood gas showed pH of 7.40, pCO2 24, HC03 of 15.?? He received 1 L normal saline and was started on an insulin drip.?? Hospital course The patient was placed on DKA management of insulin pump, IV fluids and restarting diet with good response as the gap was closed and his blood sugar levels controlled. tolerated diet well. He decided to leave the hospital and not to wait until all work up and plans are done. Not sure if the pump is working at this stage so i asked him to place it back and restart it while inpatient and wait overnight to see if it is working but he refused. reported using 40 units daily total by the pump. So i will send him Humalog insulin pen for 10 units QID. Restart your pump and follow with your diabetes provider Use Inuslin Pen if the pump is not working well until you see your provider Time Spent with Patient Time attestation: Total time managing care of this patient today ____ minutes. Discharge coordination time: Greater than 30 minutes Quality: Safe Use of Opioids Does Pt have an Active Cancer Diagnosis on the Problem List?: No Quality: Stroke Does the patient have a stroke diagnosis?: No Physical Exam Vital Signs: Vital Signs: Last Vital Signs Temp 98.0 F 05/24/23 11:12 Pulse 85 05/24/23 11:12 Resp 20 05/24/23 11:12 BP 139/84 05/24/23 11:12 Pulse Ox 100 05/24/23 11:12 O2 Del Method Room Air 05/24/23 11:12 BMI result Body Mass Index 18.2 Const: Other: Constitutional : Awake, interactive, not in distress Neck : Normal inspection, Supple Cardiovascular : RRR, no JVP, no lower extremity edema Respiratory : good bilateral air entry, no crackles, wheezes or rhonchi Gastrointestinal: soft, lax, Normal bowel sounds, Non tender Skin : Warm, Dry Neurological : Alert & oriented x3, No focal deficit DS: Data Data Completed and Pending Labs on day of discharge: Laboratory Results - last 24 hr 05/23/23 05/23/23 05/23/23 22:30 22:36 22:37 WBC 13.3 H RBC 4.67 Hgb 14.5 Hct 40.9 L MCV 87.6 MCH 31.0 MCHC 35.5 RDW 11.3 Plt Count 378 MPV 10.0 Immature Gran % (Auto) 0.3 Neut % (Auto) 68.7 Lymph % (Auto) 23.5 [place] % (Auto) 6.9 Eos % (Auto) 0.1 Baso % (Auto) 0.5 Lymph # (Auto) 3.1 [place] # (Auto) 0.9 Eos # (Auto) 0.0 Baso # (Auto) 0.1 Abs Immat Gran (auto) 0.04 H Absolute Neuts (auto) 9.1 H Absolute Nucleated RBC 0.000 Nucleated RBC % (auto) 0.0 VBG pH VBG pCO2 VBG pO2 VBG HCO3 VBG O2 Saturation VBG Base Excess Sodium Potassium Chloride Carbon Dioxide Anion Gap BUN Creatinine Estim Creat Clear Calc Estimated GFR POC Glucose 578 H* Random Glucose Calcium Total Bilirubin AST ALT Alkaline Phosphatase Troponin I High Sens Total Protein Albumin Beta-Hydroxybutyrate 7.36 H Urine Color Urine Appearance Urine pH Ur Specific [place] Urine Protein Urine Glucose (UA) Urine Ketones Urine Blood Urine Nitrite Ur Leukocyte Esterase Urine RBC Urine WBC Ur Squamous Epith Cells Urine Bacteria Hyaline Casts 05/23/23 05/23/23 05/23/23 22:37 22:37 22:45 WBC RBC Hgb Hct MCV MCH MCHC RDW Plt Count MPV Immature Gran % (Auto) Neut % (Auto) Lymph % (Auto) [place] % (Auto) Eos % (Auto) Baso % (Auto) Lymph # (Auto) [place] # (Auto) Eos # (Auto) Baso # (Auto) Abs Immat Gran (auto) Absolute Neuts (auto) Absolute Nucleated RBC Nucleated RBC % (auto) VBG pH 7.40 VBG pCO2 24 VBG pO2 97 VBG HCO3 15 L VBG O2 Saturation 99.0 VBG Base Excess -6.9 Sodium 128 L Potassium 3.8 Chloride 86 L Carbon Dioxide 15 L Anion Gap 31 H BUN 17 H Creatinine 1.30 Estim Creat Clear Calc 80.0 Estimated GFR > 60 POC Glucose Random Glucose 548 H* Calcium 10.8 H Total Bilirubin 1.2 H AST 25 ALT 46 H Alkaline Phosphatase 95 Troponin I High Sens < 2.7 Total Protein 8.1 H Albumin 5.0 Beta-Hydroxybutyrate Urine Color Urine Appearance Urine pH Ur Specific [place] Urine Protein Urine Glucose (UA) Urine Ketones Urine Blood Urine Nitrite Ur Leukocyte Esterase Urine RBC Urine WBC Ur Squamous Epith Cells Urine Bacteria Hyaline Casts 05/23/23 05/24/23 05/24/23 23:37 00:07 00:42 WBC RBC Hgb Hct MCV MCH MCHC RDW Plt Count MPV Immature Gran % (Auto) Neut % (Auto) Lymph % (Auto) [place] % (Auto) Eos % (Auto) Baso % (Auto) Lymph # (Auto) [place] # (Auto) Eos # (Auto) Baso # (Auto) Abs Immat Gran (auto) Absolute Neuts (auto) Absolute Nucleated RBC Nucleated RBC % (auto) VBG pH VBG pCO2 VBG pO2 VBG HCO3 VBG O2 Saturation VBG Base Excess Sodium Potassium Chloride Carbon Dioxide Anion Gap BUN Creatinine Estim Creat Clear Calc Estimated GFR POC Glucose 356 H* 271 H 221 H Random Glucose Calcium Total Bilirubin AST ALT Alkaline Phosphatase Troponin I High Sens Total Protein Albumin Beta-Hydroxybutyrate Urine Color Urine Appearance Urine pH Ur Specific [place] Urine Protein Urine Glucose (UA) Urine Ketones Urine Blood Urine Nitrite Ur Leukocyte Esterase Urine RBC Urine WBC Ur Squamous Epith Cells Urine Bacteria Hyaline Casts 05/24/23 05/24/23 05/24/23 01:35 01:56 02:23 WBC RBC Hgb Hct MCV MCH MCHC RDW Plt Count MPV Immature Gran % (Auto) Neut % (Auto) Lymph % (Auto) [place] % (Auto) Eos % (Auto) Baso % (Auto) Lymph # (Auto) [place] # (Auto) Eos # (Auto) Baso # (Auto) Abs Immat Gran (auto) Absolute Neuts (auto) Absolute Nucleated RBC Nucleated RBC % (auto) VBG pH VBG pCO2 VBG pO2 VBG HCO3 VBG O2 Saturation VBG Base Excess Sodium Potassium Chloride Carbon Dioxide Anion Gap BUN Creatinine Estim Creat Clear Calc Estimated GFR POC Glucose 214 H 185 H Random Glucose Calcium Total Bilirubin AST ALT Alkaline Phosphatase Troponin I High Sens Total Protein Albumin Beta-Hydroxybutyrate Urine Color Yellow Urine Appearance Clear Urine pH 5.5 Ur Specific [place] 1.025 Urine Protein Negative Urine Glucose (UA) >=1000 H Urine Ketones >=160 Urine Blood Negative Urine Nitrite Negative Ur Leukocyte Esterase Negative Urine RBC 0-2 Urine WBC 0-5 Ur Squamous Epith Cells 0-2 Urine Bacteria None Seen Hyaline Casts 0-2 05/24/23 05/24/23 05/24/23 02:38 02:41 03:08 WBC RBC Hgb Hct MCV MCH MCHC RDW Plt Count MPV Immature Gran % (Auto) Neut % (Auto) Lymph % (Auto) [place] % (Auto) Eos % (Auto) Baso % (Auto) Lymph # (Auto) [place] # (Auto) Eos # (Auto) Baso # (Auto) Abs Immat Gran (auto) Absolute Neuts (auto) Absolute Nucleated RBC Nucleated RBC % (auto) VBG pH 7.53 H VBG pCO2 33 VBG pO2 65 VBG HCO3 28 H VBG O2 Saturation 92.0 VBG Base Excess 5.8 Sodium 135 Potassium 3.4 Chloride 97 Carbon Dioxide 27 Anion Gap 14 BUN 12 Creatinine 0.90 Estim Creat Clear Calc 110.8 Estimated GFR > 60 POC Glucose 117 H Random Glucose 151 H Calcium 10.0 D Total Bilirubin AST ALT Alkaline Phosphatase Troponin I High Sens Total Protein Albumin Beta-Hydroxybutyrate Urine Color Urine Appearance Urine pH Ur Specific [place] Urine Protein Urine Glucose (UA) Urine Ketones Urine Blood Urine Nitrite Ur Leukocyte Esterase Urine RBC Urine WBC Ur Squamous Epith Cells Urine Bacteria Hyaline Casts 05/24/23 05/24/23 05/24/23 04:11 04:38 05:08 WBC RBC Hgb Hct MCV MCH MCHC RDW Plt Count MPV Immature Gran % (Auto) Neut % (Auto) Lymph % (Auto) [place] % (Auto) Eos % (Auto) Baso % (Auto) Lymph # (Auto) [place] # (Auto) Eos # (Auto) Baso # (Auto) Abs Immat Gran (auto) Absolute Neuts (auto) Absolute Nucleated RBC Nucleated RBC % (auto) VBG pH VBG pCO2 VBG pO2 VBG HCO3 VBG O2 Saturation VBG Base Excess Sodium Potassium Chloride Carbon Dioxide Anion Gap BUN Creatinine Estim Creat Clear Calc Estimated GFR POC Glucose 66 194 H 124 H Random Glucose Calcium Total Bilirubin AST ALT Alkaline Phosphatase Troponin I High Sens Total Protein Albumin Beta-Hydroxybutyrate Urine Color Urine Appearance Urine pH Ur Specific [place] Urine Protein Urine Glucose (UA) Urine Ketones Urine Blood Urine Nitrite Ur Leukocyte Esterase Urine RBC Urine WBC Ur Squamous Epith Cells Urine Bacteria Hyaline Casts 05/24/23 05/24/23 05/24/23 06:05 07:07 07:43 WBC RBC Hgb Hct MCV MCH MCHC RDW Plt Count MPV Immature Gran % (Auto) Neut % (Auto) Lymph % (Auto) [place] % (Auto) Eos % (Auto) Baso % (Auto) Lymph # (Auto) [place] # (Auto) Eos # (Auto) Baso # (Auto) Abs Immat Gran (auto) Absolute Neuts (auto) Absolute Nucleated RBC Nucleated RBC % (auto) VBG pH VBG pCO2 VBG pO2 VBG HCO3 VBG O2 Saturation VBG Base Excess Sodium Potassium Chloride Carbon Dioxide Anion Gap BUN Creatinine Estim Creat Clear Calc Estimated GFR POC Glucose 80 74 95 Random Glucose Calcium Total Bilirubin AST ALT Alkaline Phosphatase Troponin I High Sens Total Protein Albumin Beta-Hydroxybutyrate Urine Color Urine Appearance Urine pH Ur Specific [place] Urine Protein Urine Glucose (UA) Urine Ketones Urine Blood Urine Nitrite Ur Leukocyte Esterase Urine RBC Urine WBC Ur Squamous Epith Cells Urine Bacteria Hyaline Casts 05/24/23 05/24/23 05/24/23 07:49 08:39 09:08 WBC RBC Hgb Hct MCV MCH MCHC RDW Plt Count MPV Immature Gran % (Auto) Neut % (Auto) Lymph % (Auto) [place] % (Auto) Eos % (Auto) Baso % (Auto) Lymph # (Auto) [place] # (Auto) Eos # (Auto) Baso # (Auto) Abs Immat Gran (auto) Absolute Neuts (auto) Absolute Nucleated RBC Nucleated RBC % (auto) VBG pH VBG pCO2 VBG pO2 VBG HCO3 VBG O2 Saturation VBG Base Excess Sodium 139 133 L Potassium 3.6 3.9 Chloride 99 96 Carbon Dioxide 25 23 Anion Gap 19 18 BUN 10 9 Creatinine 0.75 0.81 Estim Creat Clear Calc 133.0 123.2 Estimated GFR > 60 > 60 POC Glucose 278 H Random Glucose 85 286 H Calcium 9.5 9.2 Total Bilirubin AST ALT Alkaline Phosphatase Troponin I High Sens Total Protein Albumin Beta-Hydroxybutyrate Urine Color Urine Appearance Urine pH Ur Specific [place] Urine Protein Urine Glucose (UA) Urine Ketones Urine Blood Urine Nitrite Ur Leukocyte Esterase Urine RBC Urine WBC Ur Squamous Epith Cells Urine Bacteria Hyaline Casts 05/24/23 05/24/23 09:11 11:27 WBC RBC Hgb Hct MCV MCH MCHC RDW Plt Count MPV Immature Gran % (Auto) Neut % (Auto) Lymph % (Auto) [place] % (Auto) Eos % (Auto) Baso % (Auto) Lymph # (Auto) [place] # (Auto) Eos # (Auto) Baso # (Auto) Abs Immat Gran (auto) Absolute Neuts (auto) Absolute Nucleated RBC Nucleated RBC % (auto) VBG pH 7.45 H VBG pCO2 37 VBG pO2 93 VBG HCO3 26 VBG O2 Saturation 99.0 VBG Base Excess 2.5 Sodium Potassium Chloride Carbon Dioxide Anion Gap BUN Creatinine Estim Creat Clear Calc Estimated GFR POC Glucose 98 Random Glucose Calcium Total Bilirubin AST ALT Alkaline Phosphatase Troponin I High Sens Total Protein Albumin Beta-Hydroxybutyrate Urine Color Urine Appearance Urine pH Ur Specific [place] Urine Protein Urine Glucose (UA) Urine Ketones Urine Blood Urine Nitrite Ur Leukocyte Esterase Urine RBC Urine WBC Ur Squamous Epith Cells Urine Bacteria Hyaline Casts Imaging Chest x-ray: Radiologist's impression: ITS Impressions Chest X-Ray 05/23/23 22:42 IMPRESSION: Unremarkable examination. Discharge Plan Discharge Anticipated Discharge Date/Time: 05/24/23 13:29 Patient Disposition: Left Against Medical Advice Discharge Diagnosis: DKA Referrals: Physician,Unknown J [Primary Care Provider] - 1 Week Discharge Medications: New insulin lispro [Humalog KwikPen Insulin] 100 unit/mL insulin pen 10 unit subcut QIDACHS Qty: 15 1RF Continued insulin lispro [Humalog U-100 Insulin] 100 unit/mL solution 1 sliding scale dose subcut DAILY Rx Instructions: PT USES TANDEM INSULIN PUMP Discharge Orders: Discharge Order (Routine); Ordered 05/24/23 Ordered By: Char Lovell Stand Alone Forms: Patient Portal Discharge page, Work/School Release Care Plan Goals: . Health Concerns: . Plan of Treatment: . Assessment: You are leaving against medical advice. We advise you to come back to hospital for any elevated blood sugar readings, nausea or vomiting. Restart your pump and follow with your diabetes provider Use Inuslin Pen if the pump is not working well until you see your provider Discharge Date/Time: 05/24/23 14:01
== END 2023-05-24 14:01 | disposition left against medical advice (07) | DRG 919 ==
LOC: HO.ED 23:47 → HO.EDOVER 05-24 00:31 → HO.ICU 05-24 00:36 → HO.IMC 05-24 10:40
PROVIDERS: Internal Medicine Pulmonary Disease; Admitting Provider Nurse Practitioner Family; Emergency Provider Emergency Medicine; Visit Provider Student in an Organized Health Care Education/Training Program
DX: T85.694A Other mechanical complication of insulin pump, initial encounter (principal); E11.10 Type 2 diabetes mellitus with ketoacidosis without coma; T38.3X6A Underdosing of insulin and oral hypoglycemic [antidiabetic] drugs, initial encounter
CPT/HCPCS: 36415; 71046; 80048; 80053; 81001; 82010; 82803; 82947; 84484; 85025; 93005; 99285

== ENCOUNTER → 2023-05-23 22:08 | Outpatient (BNV) | payer OTHER, SELFPAY | PROVIDERS: Admitting Provider Nurse Practitioner Family; Emergency Provider Emergency Medicine; Visit Provider Internal Medicine Cardiovascular Disease | DX: R00.0 Tachycardia, unspecified (principal); R94.31 Abnormal electrocardiogram [ECG] [EKG] | CPT/HCPCS: 93010 ==

== ENCOUNTER → 2023-05-24 00:11 | Outpatient (BNV) | payer OTHER, SELFPAY | PROVIDERS: Admitting Provider Nurse Practitioner Family; Emergency Provider Emergency Medicine; Visit Provider Student in an Organized Health Care Education/Training Program | DX: E11.10 Type 2 diabetes mellitus with ketoacidosis without coma (principal); T85.694A Other mechanical complication of insulin pump, initial encounter | CPT/HCPCS: 99239 ==

== ENCOUNTER → 2023-05-24 00:11 | Outpatient (BNV) | payer OTHER, SELFPAY | PROVIDERS: Admitting Provider Nurse Practitioner Family; Emergency Provider Emergency Medicine; Visit Provider Nurse Practitioner Family | DX: E11.10 Type 2 diabetes mellitus with ketoacidosis without coma (principal) | CPT/HCPCS: 99222 ==